=== PATIENT | male | born 1960 | race Caucasian/White ===

== ENCOUNTER 2017-12-01 18:13 | Inpatient (IN) | payer MEDICAID ==
[~2017-12-01] VITALS: Ht 170.2 cm; Wt 89.4 kg
[2017-12-01] MEDS ORDERED: IPRATROPIUM BROMIDE 0.02% 2.5 ML NEB NEB STA (18:18)
[2017-12-01] MEDS ORDERED: ALBUTEROL SULF 0.083% NEB SOLN 3 ML NEB NEB STA (18:18)
[2017-12-01 18:31] LABS: BASOPHILS # (AUTO) 0.1 (0.0-0.1); BASOPHILS % 1.1 % (0.0-1.0); EOSINOPHILS # (AUTO) 0.4 (0.0-0.4); EOSINOPHILS % 5.6 % (0.0-6.0); HEMATOCRIT 34.8 % (38.2-49.6); HEMOGLOBIN 11.4 g/dL (14.0-18.0); LYMPHOCYTES # (AUTO) 1.5 (1.0-3.2); LYMPHOCYTES % 23.2 % (18.0-39.1); MEAN CORPUSCULAR HEMOGLOBIN 28.7 pg (28-32); MEAN CORPUSCULAR HGB CONC 32.8 g/dL (31-35); MEAN CORPUSCULAR VOLUME 87.7 fL (81-99); MONOCYTES # (AUTO) 0.6 (0.2-0.8); MONOCYTES % 9.9 % (4.4-11.3); NEUTROPHILS # (AUTO) 3.8 (2.1-6.9); NEUTROPHILS % 59.9 % (38.7-80.0); PLATELET COUNT 197 x10e3/uL (140-360); RED BLOOD COUNT 3.97 x10e6/uL (4.3-5.7)
[2017-12-01 18:46] LABS: ANION GAP 15.8 mmol/L (8-16); CALCIUM 8.9 mg/dL (8.4-10.2); CREATININE, SERUM 3.18 mg/dL (0.72-1.25); POTASSIUM 3.8 mmol/L (3.5-5.1)
[2017-12-01] MEDS ORDERED: INSULIN REGULAR, HUMAN 100 UNIT/1 ML 3ML VIAL IV STA (18:54)
[2017-12-01] MEDS ORDERED: SODIUM CHLORIDE 0.9% 1000ML 1,000 ML IV STA (18:59)
[2017-12-01] MEDS ORDERED: FAMOTIDINE 20 MG/2 ML VIAL IV STA (18:59)
[2017-12-01] MEDS ORDERED: ONDANSETRON HCL INJ 2 MG/ML VIAL IV PRN ×2 (19:00→20:45)
[2017-12-01] MEDS ORDERED: LISINOPRIL10 MG PO (19:07)
[2017-12-01] MEDS ORDERED: LYRICA50 MG PO (19:07)
[2017-12-01] MEDS ORDERED: HYDROCHLOROTHIA25 MG PO (19:07)
[2017-12-01] MEDS ORDERED: NOVOLIN N100 UNIT/1 SQ (19:07)
[2017-12-01] MEDS ORDERED: DOXAZOSIN MESYLA2 MG PO (19:07)
[2017-12-01] MEDS ORDERED: HYDRALAZINE HCL25 MG PO (19:07)
[2017-12-01] MEDS ORDERED: METOPROLOL TART50 MG PO (19:07)
[2017-12-01] MEDS ORDERED: NOVALIN N SQ ×2 (19:12)
[2017-12-01] MEDS ORDERED: HYDROCODONE/APAP 5MG-325MG TAB PO ONE (19:15)
[2017-12-01] MEDS ORDERED: ONDANSETRON HCL INJ 2 MG/ML VIAL IV ONE (19:15)
[2017-12-01] MEDS ORDERED: INSULIN REGULAR, HUMAN 100 UNIT/1 ML 3ML VIAL IV ONE (19:15)
--- NOTE | 2017-12-01 20:00 | Diagnostic Imaging Report ---
EXAMINATION: CHEST 2 VIEWS INDICATION: \S\ORDER PLACED BY \S\[id number] \S\1913 \S\Y COMPARISON: None FINDINGS: PA and lateral views TUBES and LINES: None. LUNGS: Lungs are well inflated. Minimal atelectasis in the right lower lobe. There is no evidence of pneumonia or pulmonary edema. PLEURA: No pleural effusion or pneumothorax. HEART AND MEDIASTINUM: The cardiac silhouette is prominent. BONES AND SOFT TISSUES: Moderate multilevel degenerative changes of the thoracic spine. Soft tissues are unremarkable. UPPER ABDOMEN: No free air under the diaphragm. IMPRESSION: Subsegmental atelectasis in the right lower lobe. Signed by: Dr. Nat Baird M.D. on 12/01/2017 7:56 PM
[2017-12-01] MEDS ORDERED: METHYLPREDNISOLONE SOD SUCC 125 MG/2ML VIAL IV STA (20:32)
[2017-12-01 20:38] LABS: CREATINE KINASE MB 1.7 ng/mL (0-5.0)
[2017-12-01] MEDS ORDERED: SODIUM CHLORIDE 0.9% 1000ML 1,000 ML IV SCH (20:45)
[2017-12-01] MEDS ORDERED: ALBUTEROL SULF 0.083% NEB SOLN 3 ML NEB NEB PRN (20:45)
[2017-12-01] MEDS ORDERED: DEXTROSE 50% SYRINGE 50 ML IV PRN (20:45)
[2017-12-01] MEDS ORDERED: IPRATROPIUM BROMIDE 0.02% 2.5 ML NEB NEB PRN (20:45)
[2017-12-01] MEDS ORDERED: INSULIN REGULAR, HUMAN 100 UNIT/1 ML 3ML VIAL SQ SCH (21:00)
[2017-12-01] MEDS ORDERED: ASPIRIN 325 MG TAB EC PO ONE (21:00)
[2017-12-01] MEDS: AZITHROMYCIN 500MG/NS 250 ML 250 ML IV SCH (21:52)
[2017-12-01] MEDS: CEFTRIAXONE SOD 1 GM VIAL IV SCH (21:52)
[2017-12-01 22:00] VITALS: BP 159/72
[2017-12-01 22:25] VITALS: BP 159/72
[2017-12-01] MEDS: FAMOTIDINE 20 MG/2 ML VIAL IV SCH (23:22)
[2017-12-02] VITALS (9 sets, daily range): BP systolic 144–160; BP diastolic 74–87
[2017-12-02 03:23] LABS: CREATINE KINASE MB 1.7 ng/mL (0-5.0)
[2017-12-02 05:54] LABS: BASOPHILS % 0.6 % (0.0-1.0); EOSINOPHILS % 0.2 % (0.0-6.0); HEMATOCRIT 32.8 % (38.2-49.6); HEMOGLOBIN 10.8 g/dL (14.0-18.0); LYMPHOCYTES # (AUTO) 0.5 (1.0-3.2); MEAN CORPUSCULAR HEMOGLOBIN 28.6 pg (28-32); MEAN CORPUSCULAR HGB CONC 32.9 g/dL (31-35); MONOCYTES # (AUTO) 0.1 (0.2-0.8); MONOCYTES % 1.4 % (4.4-11.3); NEUTROPHILS # (AUTO) 4.3 (2.1-6.9); NEUTROPHILS % 87.6 % (38.7-80.0); PLATELET COUNT 181 x10e3/uL (140-360); RED BLOOD COUNT 3.77 x10e6/uL (4.3-5.7); RED CELL DISTRIBUTION WIDTH 14.6 % (11.7-14.4)
[2017-12-02 06:18] LABS: ANION GAP 15.5 mmol/L (8-16); CALCIUM 8.6 mg/dL (8.4-10.2); CHOL/HDL RATIO 4.6 (3.9-4.7); CREATININE, SERUM 2.88 mg/dL (0.72-1.25); POTASSIUM 4.5 mmol/L (3.5-5.1)
[2017-12-02] MEDS ORDERED: ZOLPIDEM TARTRATE 10 MG TAB PO PRN (08:00)
[2017-12-02] MEDS ORDERED: DEXTROSE 50% SYRINGE 50 ML IV PRN (08:00)
[2017-12-02] MEDS: ASPIRIN 81 MG ENTERIC COATED PO SCH (08:44)
[2017-12-02] MEDS: HYDRALAZINE HCL 25 MG TAB PO SCH ×3 (08:44→21:10)
[2017-12-02] MEDS: FAMOTIDINE 20 MG/2 ML VIAL IV SCH ×2 (08:44→21:09)
[2017-12-02] MEDS: METOPROLOL TARTRATE 50 MG TAB PO SCH ×2 (08:45→17:34)
[2017-12-02] MEDS: HUMULIN 70/30 VIAL SQ SCH ×2 (08:45→21:11)
[2017-12-02] MEDS: PREGABALIN 50 MG CAP PO SCH (08:45)
--- NOTE | 2017-12-02 08:46 | Pre Op History & Physical ---
REFERRING PHYSICIAN: Dr. Eren Hui. CHIEF COMPLAINT: Chest pain after coughing. HISTORY OF PRESENT ILLNESS: The patient is a 57-year-old man. He has a history of insulin-dependent diabetes and chronic renal insufficiency stage 3. Apparently, he was coughing and then heard a "pop" in the chest. He complains of right-sided chest pain since then. He does not have any fever or phlegm production. PAST SURGICAL HISTORY 1. Status post appendectomy. 2. He is status post foot surgery. MEDICAL HISTORY 1. History of diabetes that requires insulin. 2. History of chronic renal failure stage 3. 3. No prior cardiac history. SOCIAL HISTORY: The patient was a smoker up until very recently. He is not an active drinker. FAMILY HISTORY: Family history is noncontributory. REVIEW OF SYSTEMS: The patient has no fever or headache. He is not complaining of neck pain. He does have some chest pain that is worse on the right side and is worse with . He notes some cough but no dyspnea. He is not having any abdominal pain. He has no nausea or vomiting. He has no leg edema. PHYSICAL EXAMINATION VITALS: The patient is afebrile. The vital signs are stable. HEENT: No facial swelling or erythema. The nasal mucosa is normal. The oropharynx is normal. LYMPHATIC: No submandibular, cervical, or supraclavicular adenopathy. CARDIAC: Regular rate and rhythm with normal S1 and S2. There are no murmurs or rubs. LUNGS: Auscultation of lungs shows rhonchus breath sounds bilaterally. There is no wheezing. ABDOMEN: Soft and nontender. There is no rebound or guarding. EXTREMITIES: No leg edema or calf tenderness. There is no cyanosis or clubbing. SKIN: No rashes. NEUROLOGIC: No focal abnormalities. IMPRESSIONS 1. Chest pain of unclear etiology. 2. Possible rib fracture related to coughing. 3. Insulin-dependent diabetes. 4. Chronic renal insufficiency. PLAN 1. Patient will have a CT scan of the chest to rule out any pneumothorax. 2. Cardiac evaluation. 3. Kidney evaluation. 4. Continue insulin and antihypertensives. Job#: [id number]
[2017-12-02] MEDS ORDERED: LISINOPRIL 10 MG TAB PO SCH (09:00)
--- NOTE | 2017-12-02 09:44 | Diagnostic Imaging Report ---
PROCEDURE: CT CHEST WITHOUT CONTRAST CT scan of the chest WITHOUT intravenous contrast, using standard protocol. TECHNIQUE: The chest was scanned utilizing a multidetector helical scanner from the apex to the level of the adrenal glands. No IV contrast was administered because of referring physician request. Coronal and sagittal multiplanar reformations were obtained. COMPARISON: Chest radiograph 12/01/2017. INDICATIONS: COUGH, RIGHT SIDE CHAST PAIN FINDINGS: Lines/tubes: None. Lungs and Airways: Groundglass and bandlike opacities in the dependent lower lobes right greater than left compatible with subsegmental atelectasis. No consolidation, bronchiectasis, or fibrotic change. No cystic lucencies or bullae to suggest emphysema. Pleura: No pleural effusion or pneumothorax. Heart and mediastinum: Visualized portions of the thyroid gland are unremarkable. Mediastinal lymph nodes are increased in number though not enlarged by CT criteria. Evaluation for hilar lymphadenopathy is limited in the absence of intravenous contrast. No axillary lymphadenopathy. Atherosclerotic calcification of the thoracic aorta, great vessel origins, and coronary arteries. No ectasia or aneurysmal dilatation of the thoracic aorta. Pulmonary outflow tract is of normal caliber. No pericardial effusion. Moderate sliding hiatal hernia. Soft tissues: No focal soft tissue abnormalities. Abdomen: Visualized portions of the liver, spleen, adrenals, and pancreas are unremarkable. Bones: No osseous destructive lesions. Multilevel degenerative disc changes of the thoracic spine. Extensive degenerative osteophytosis of the right glenoid and humeral head. Status post left shoulder arthroplasty. IMPRESSION: Bibasilar subsegmental atelectasis. No pneumothorax. No CT evidence of COPD/emphysema per clinical query. Atherosclerotic vascular disease. Sliding hiatal hernia. Dictated by: David Birch M.D. on 12/02/2017 at 9:49 Electronically approved by: David Birch M.D. on 12/02/2017 at 9:49
[2017-12-02 10:53] LABS: CREATINE KINASE MB 1.9 ng/mL (0-5.0)
[2017-12-02] MEDS: INSULIN REGULAR, HUMAN 100 UNIT/1 ML 3ML VIAL SQ SCH ×3 (12:00→21:12)
--- NOTE | 2017-12-02 13:31 | Consultation ---
DATE OF CONSULTATION: December 02, 2017 CARDIOLOGY CONSULTATION ATTENDING PHYSICIAN: Dr. Stone Hassan. CLINICAL HISTORY: This is a 57-year-old white man, a patient Dr. Eren Hui, referred by Dr. Stone Hassan for evaluation of right upper quadrant pleuritic pains. This patient has a chronic left bundle-branch block. He was told that he has thickened heart muscle in the past. He has no previous history of coronary artery disease. He walks 2 miles per day without any exertion-related chest pains. He noticed that he has had right upper quadrant pain particularly with coughing. He said he heard a pop in his chest. CT scan of the chest, however, failed to show any rib fractures. The patient does have a sliding hiatal hernia. There is no evidence of pneumothorax. Cardiology consultation is requested. PAST MEDICAL HISTORY: Remarkable for appendectomy, bilateral shoulder surgery, foot surgery. He has history of hypertension. He denies any diabetes or hyperlipidemia. There is history of chronic kidney disease. His creatinine now is 2.88. PERSONAL / SOCIAL HISTORY: He smoked for 5 years. He has a chronic cough. He thinks he might have a virus. He stopped drinking in 1993. Prior to that, he was a heavy drinker. 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 Apparently his shoulder prevents him from working on a regular job. FAMILY HISTORY: Noncontributory. REVIEW OF SYSTEMS: Negative. PHYSICAL EXAMINATION VITAL SIGNS: Stable. CARDIAC: Jugular veins are not distended. S1, S2 were regular. There is no appreciable murmur. LUNGS: Clear. ABDOMEN: Right upper quadrant tenderness. There is no rebound or guarding. EXTREMITIES: No cyanosis, clubbing or edema. IMPRESSION 1. Possible cholecystitis and cholelithiasis. 2. Hypertension. 3. Unclear history of insulin-dependent diabetes. 4. Chronic kidney disease. Creatinine 2.88. 5. Chronic left bundle-branch block without any chest symptoms even with exertion. RECOMMENDATION: At this point, I do not recommend any cardiac workup. Consider ultrasound of the gallbladder. Thank you very much. Job#: [id number] cc:Jose Angel BUCIO MD
[2017-12-02] MEDS: LISINOPRIL 20 MG TAB PO SCH (17:34)
[2017-12-02] MEDS: HYDROCODONE/APAP 7.5MG-325MG 1 EA TAB PO PRN (17:35)
--- NOTE | 2017-12-02 17:55 | Diagnostic Imaging Report ---
PROCEDURE:ABDOMINAL ULTRASOUND COMPARISON:None. INDICATIONS:RUQ PAIN, CHECK GB TECHNIQUE: Warren-scale and color sonographic images were obtained of the abdomen in transverse and sagittal planes. FINDINGS: Liver: 15.1 cm in length in right midclavicular line. Normal echogenicity. No masses. Main portal vein: 1.2 cm in caliber, hepatopetal flow Gallbladder: The gallbladder is poorly visualized. Calcified stones are seen in the gallbladder. There is mild thickening of the gallbladder wall, measuring up to 7 mm, which may be due to underdistention. Common Bile Duct: 0.6 cm in caliber with a small amount of internal debris. Sonographic Manzanares's sign: Reported as positive, though evaluation is limited Right kidney: 8.4 cm in length Left kidney: 10.8 cm in length 7 mm echogenic focus in the right kidney may represent a nonobstructing stone. A 1.2 cm echogenic focus in the left kidney may also represent a nonobstructing stone. 1.6 x 1.4 x 1.4 cm cyst in the midpole of the left kidney 1.4 x 1.3 x 1.2 cm cyst, also in the midpole of the left kidney. No hydronephrosis or solid renal masses. Renal parenchymal echogenicity is increased. Spleen: 12.9 cm in length Pancreas: Not visualized due to overlying bowel gas Inferior vena cava: Patent Aorta: Poorly visualized due to overlying bowel gas Ascites: None CONCLUSION: 1. Limited examination due to patient body habitus and excessive overlying bowel gas. 2. Cholelithiasis. Gallbladder wall thickening may be due to underdistention. No pericholecystic fluid. Correlate for clinical evidence of acute cholecystitis. 3. Nonobstructing stones in both kidneys. Simple left renal cysts. 4. Increased renal parenchymal echogenicity suggests renal parenchymal dysfunction. Dictated by: Curtis oMore M.D. on 12/02/2017 at 18:00 Electronically approved by: Curtis Moore M.D. on 12/02/2017 at 18:00
--- NOTE | 2017-12-02 18:56 | Consultation ---
DATE OF CONSULTATION: December 02, 2017 NEPHROLOGY CONSULTATION REASON FOR CONSULTATION: Acute kidney injury on chronic kidney disease. HISTORY OF PRESENT ILLNESS: A 57-year-old male with past medical history of uncontrolled type 2 diabetes for 10 years, known history of chronic kidney disease stage 3-4 ongoing for several years now. He presented to the ED after having a popping sensation in his right chest wall after having a significant cough at home. The patient denies any fever, cough, congestion or any other phlegm at home. The patient was evaluated and interviewed thoroughly. The patient denies any history of kidney stones or any family members on dialysis. He denies any family history of some sort of genetic kidney disorder. He reports taking Advil once a week, occasionally twice a week. He also denies any recent medication usage. Denies any herbal supplements, [id number] medications as well. The patient, of note, has been known to have on underlying chronic kidney disease, which he was told by his primary care physician. The patient is seen and evaluated at the bedside on the medical floor. Patient currently doing well with no other issues at this time. REVIEW OF SYSTEMS: Pertinent positives: Cough, congestion, right-sided chest pain. Pertinent negatives: Denies any palpitations, nausea, vomiting, diarrhea, dysuria, hematuria, frequency, urgency, lightheadedness, dizziness, abdominal pain, headaches, shortness of breath, fever or any other complaints. Rest of the 14-point review of systems have been reviewed with the patient and are negative. ALLERGIES: IODINE. HOME MEDICATIONS: Doxazosin 2 mg at bedtime, hydralazine 25 mg p.o. t.i.d., lisinopril 20 mg b.i.d., metoprolol 100 mg p.o. b.i.d., NPH 35 units subcu twice daily, Lyrica 50 mg daily, Novolin N 30 units subcu at bedtime, and Novolin 35 units in the morning, hydrochlorothiazide 25 mg during the day. PAST MEDICAL HISTORY: Hypertension, BPH, chronic kidney disease stage 3, uncontrolled type 2 diabetes. FAMILY HISTORY: Hypertension and diarrhea. PAST SURGICAL HISTORY: Appendectomy, status post foot surgery in the past. SOCIAL HISTORY: He smokes 1 pack per day for many years. No drugs. No alcohol. Good social support. PHYSICAL EXAMINATION VITAL SIGNS: Temperature 98.6, pulse 60, respiratory rate 19, blood pressure 160/74, pulse ox 94% on room air. GENERAL: Not in acute distress. Alert and oriented times 3 and cooperative on exam. HEENT: Head is normocephalic and atraumatic: Eyes: Pupils are equal and reactive to light bilaterally. Extraocular movements intact bilaterally. NECK: Supple. Good range of motion. THROAT: No evidence of any erythema or exudates in the posterior pharynx. Has poor dentition. PULMONARY: Clear to auscultation bilaterally. No wheezing and no rales or rhonchi appreciated. CARDIOVASCULAR: Positive S1 and S2. No murmurs, rubs or gallops appreciated. ABDOMEN: Soft, nondistended and nontender to palpation. Bowel sounds present. MUSCULOSKELETAL: Strength is 5/5 throughout. No evidence of any musculoskeletal deficit on examination. No weakness appreciated. NEUROLOGICAL: Cranial nerves II through XII are grossly intact. No evidence of any neurological deficit on exam. SKIN: Intact. Warm to touch. Good cap refill. PSYCHIATRIC: Normal affect and mood. EXTREMITIES: No edema and good range of motion throughout. LABORATORY DATA: White count is 4.9, hematocrit 33, hemoglobin 10.8, platelets 181,000. Coagulation: D-dimer 0.48. Chemistry: Sodium 135, potassium 4.5, chloride 101, bicarb 23, anion gap of 15, BUN 41, creatinine 2.8. In looking at his trend, creatinine of note in 2008 creatinine was 1.7, then downtrended to 1.3. In 2014 creatinine was 2, now 3.1, now 2.8. Glucose is 257. Troponins are 0.065. LDH is 71. Urinalysis: Toxicology none. Microbiology: None. IMAGING: Chest x-ray documented atelectasis in the right lower lobe. CT of chest bibasilar subsegmental atelectasis. No pneumothorax. Atherosclerotic vascular disease. Sliding hiatal hernia. IMPRESSION 1. Right-sided chest pain. 2. Acute kidney injury on chronic kidney disease, stage 3-4. 3. Uncontrolled type 2 diabetes. 4. Hypertension. PLAN: At this time, it seems that the patient's underlying chronic kidney disease is due to diabetic nephropathy due to having diabetic neuropathy as well as diabetic retinopathy, according to the patient. At this time, he also has elevated blood pressure which also could be contributing to his renal disease. Of note, he has had this problem for several years now, and he has been aware by his primary care physician. At this time, we will get urine, electrolytes, urine sodium, urine protein to creatinine, urine microalbumin to creatinine, urine eosinophils. I would like to quantify his proteinuria. Try to maximize his LUIS MANUEL inhibitor as tolerated due to the fact that this is likely diabetic nephropathy. He will get a renal ultrasound as well to assess the kidney size and chronicity. Otherwise, will continue to follow with you and get a.m. labs. Thank you so much for this consultation. Will continue to follow with you. Job#: [id number] KAUR
[2017-12-02 19:31] LABS: BILIRUBIN,URINE NEGATIVE (NEGATIVE); CLARITY,URINE SL CLOUDY (CLEAR); COLOR,URINE YELLOW (YELLOW); KETONES,URINE NEGATIVE (NEGATIVE); LEUKOCYTE ESTERASE ,URINE NEGATIVE (NEGATIVE); NITRITE,URINE NEGATIVE (NEGATIVE); PROTEIN,URINE DIPSTICK 2+ (NEGATIVE); URINE UROBILINOGEN 0.2 mg/dL (0.2 - 1)
[2017-12-02 19:33] LABS: EPITHELIAL CELLS,URINE FEW /LPF
[2017-12-02 19:45] LABS: CREATININE,URINE RANDOM 91.83 mg/dL (63-166); SODIUM,URINE 58 mmol/L; TOTAL PROTEIN, URINE 120.1 mg/dL (1-14)
[2017-12-02 19:47] LABS: CREATINE KINASE MB 2.3 ng/mL (0-5.0)
[2017-12-02] MEDS: HYDROMORPHONE 1MG/1ML INJ IV PRN (19:49)
[2017-12-02 20:08] LABS: EOSINOPHIL SMEAR,URINE NONE SEEN (NONE SEEN)
[2017-12-02] MEDS ORDERED: SODIUM CHLORIDE 0.9% 250ML 250 ML ONE (20:54)
[2017-12-02] MEDS ORDERED: NOVALIN N SQ SCH (21:00)
[2017-12-02] MEDS: CEFTRIAXONE SOD 1 GM VIAL IV SCH (21:08)
[2017-12-02] MEDS: AZITHROMYCIN 500MG/NS 250 ML 250 ML IV SCH (21:08)
[2017-12-02] MEDS: DOXAZOSIN MESYLATE 2 MG TAB PO SCH (21:10)
[2017-12-03 05:43] LABS: BASOPHILS % 0.4 % (0.0-1.0); EOSINOPHILS # (AUTO) 0.1 (0.0-0.4); EOSINOPHILS % 0.6 % (0.0-6.0); HEMATOCRIT 34.3 % (38.2-49.6); HEMOGLOBIN 10.8 g/dL (14.0-18.0); LYMPHOCYTES # (AUTO) 1.6 (1.0-3.2); LYMPHOCYTES % 16.4 % (18.0-39.1); MEAN CORPUSCULAR HEMOGLOBIN 28.6 pg (28-32); MEAN CORPUSCULAR HGB CONC 31.5 g/dL (31-35); MEAN CORPUSCULAR VOLUME 90.7 fL (81-99); MONOCYTES # (AUTO) 0.5 (0.2-0.8); MONOCYTES % 5.5 % (4.4-11.3); NEUTROPHILS # (AUTO) 7.2 (2.1-6.9); NEUTROPHILS % 76.5 % (38.7-80.0); PLATELET COUNT 191 x10e3/uL (140-360); RED BLOOD COUNT 3.78 x10e6/uL (4.3-5.7); RED CELL DISTRIBUTION WIDTH 14.7 % (11.7-14.4)
[2017-12-03 06:09] LABS: ANION GAP 17.7 mmol/L (8-16); CALCIUM 9.5 mg/dL (8.4-10.2); CREATININE, SERUM 3.34 mg/dL (0.72-1.25); POTASSIUM 4.7 mmol/L (3.5-5.1)
[2017-12-03 07:10] VITALS: BP 156/83
[2017-12-03] MEDS: INSULIN REGULAR, HUMAN 100 UNIT/1 ML 3ML VIAL SQ SCH ×4 (07:30→21:04)
[2017-12-03] MEDS: NPH, HUMAN INSULIN ISOPHANE 100 UNIT/1 ML 3ML VIAL SQ SCH (07:30)
[2017-12-03] MEDS ORDERED: NOVALIN N SQ SCH (07:30)
[2017-12-03 08:29] VITALS: BP 156/83
[2017-12-03] MEDS: HUMULIN 70/30 VIAL SQ SCH ×2 (09:00→21:00)
[2017-12-03] MEDS: ASPIRIN 81 MG ENTERIC COATED PO SCH (09:06)
[2017-12-03] MEDS: FAMOTIDINE 20 MG/2 ML VIAL IV SCH ×2 (09:06→20:55)
[2017-12-03] MEDS: HYDRALAZINE HCL 25 MG TAB PO SCH ×3 (09:06→20:57)
[2017-12-03] MEDS: PREGABALIN 50 MG CAP PO SCH (09:07)
[2017-12-03] MEDS: METOPROLOL TARTRATE 50 MG TAB PO SCH ×2 (09:07→16:06)
[2017-12-03] MEDS: LISINOPRIL 20 MG TAB PO SCH ×2 (09:07→16:06)
[2017-12-03] MEDS: HYDROCODONE/APAP 7.5MG-325MG 1 EA TAB PO PRN (10:20)
[2017-12-03 11:53] VITALS: BP 143/96
--- NOTE | 2017-12-03 13:34 | Consultation ---
DATE OF CONSULTATION: December 03, [address] Dr. Stone Hassan. 2. Dr. Eren Hui. HISTORY OF PRESENT ILLNESS: Patient is a 57-year-old male who was admitted to the hospital with complaints of chest pain and right upper quadrant abdominal pain. Patient says the pain is worse when he coughs and radiates to his back. Says it has gotten progressively worse since he was admitted. Evaluation of the ultrasound revealed gallstones with a thickened gallbladder wall. PAST MEDICAL HISTORY: Significant for previous appendectomy, previous foot surgery, history of diabetes, chronic kidney disease. MEDICATIONS: At home are doxazosin, hydralazine, hydrochlorothiazide, lisinopril, metoprolol, insulin, pregabalin. ALLERGIES: ALLERGY TO IODINE. FAMILY HISTORY: Noncontributory. SOCIAL HISTORY: The patient smokes cigarettes about 1-1/2 pack per day. Does not drink alcohol. REVIEW OF SYSTEMS: There is no fever, no weight loss. PHYSICAL EXAMINATION VITALS: Normal. He is afebrile. GENERAL: The patient is awake and alert, in no distress. HEENT: Reveals no scleral icterus. NECK: Has no masses. LUNGS: Equal breath sounds, are clear bilaterally. CARDIAC: Regular rate and rhythm with no murmur. ABDOMEN: Tender in right upper quadrant. There is no mass. There is no distension. There were no signs of peritonitis. EXTREMITIES: Have slight edema. NEUROLOGIC: Grossly intact. LABORATORY DATA: White blood cell count is normal. Hemoglobin and hematocrit are normal. Chemistries reveal elevated BUN and creatinine. Otherwise electrolytes were normal. ASSESSMENT: A 57-year-old male with right upper quadrant abdominal pain symptoms, suggestive of gallbladder disease with gallstones seen on ultrasound. Patient would likely benefit from cholecystectomy. Plan: To schedule for tomorrow. Procedure was explained to the patient including risks, benefits, and alternatives. He understands the procedure. He has had the opportunity to ask questions. Thank you for asking me see to see Mr. Guaman. Job#: [id number] OMAYRA
[2017-12-03 16:10] VITALS: BP 160/90
[2017-12-03 20:00] VITALS: BP 151/84
[2017-12-03] MEDS: DOXAZOSIN MESYLATE 2 MG TAB PO SCH (20:57)
[2017-12-03] MEDS: CEFTRIAXONE SOD 1 GM VIAL IV SCH (20:58)
[2017-12-03] MEDS: AZITHROMYCIN 500MG/NS 250 ML 250 ML IV SCH (21:06)
[2017-12-03 21:07] VITALS: BP 151/84
[2017-12-04] VITALS (8 sets, daily range): BP systolic 121–171; BP diastolic 70–92
[2017-12-04] MEDS: NPH, HUMAN INSULIN ISOPHANE 100 UNIT/1 ML 3ML VIAL SQ SCH (07:30)
[2017-12-04] MEDS: INSULIN REGULAR, HUMAN 100 UNIT/1 ML 3ML VIAL SQ SCH ×4 (07:30→21:23)
[2017-12-04] MEDS: PREGABALIN 50 MG CAP PO SCH (07:43)
[2017-12-04] MEDS: LISINOPRIL 20 MG TAB PO SCH ×2 (07:43→17:13)
[2017-12-04] MEDS: HYDRALAZINE HCL 25 MG TAB PO SCH ×3 (07:43→21:14)
[2017-12-04] MEDS: METOPROLOL TARTRATE 50 MG TAB PO SCH ×2 (07:43→17:13)
[2017-12-04] MEDS: ASPIRIN 81 MG ENTERIC COATED PO SCH (07:43)
[2017-12-04] MEDS: HUMULIN 70/30 VIAL SQ SCH ×2 (07:43→21:22)
[2017-12-04] MEDS: FAMOTIDINE 20 MG/2 ML VIAL IV SCH ×2 (08:55→21:21)
[2017-12-04] MEDS ORDERED: BUPIVACAINE 0.5%/EPI 30 ML SDV INJ ONE (13:39)
[2017-12-04] MEDS: SODIUM CHLORIDE 0.9% 1000ML 1,000 ML IV SCH (15:16)
[2017-12-04] MEDS ORDERED: HYDROCODONE/APAP 7.5MG-325MG 1 EA TAB PO PRN (15:30)
[2017-12-04] MEDS ORDERED: ONDANSETRON HCL INJ 2 MG/ML VIAL IV PRN (15:30)
[2017-12-04] MEDS ORDERED: ALBUTEROL SULF 0.083% NEB SOLN 3 ML NEB ONE (15:38)
--- NOTE | 2017-12-04 15:58 | Operative Report ---
DATE OF PROCEDURE: December 04, 2017 PREOPERATIVE DIAGNOSIS: [id number]-[id number] cholecystitis, cholelithiasis. POSTOPERATIVE DIAGNOSIS: [id number] cholecystitis, cholelithiasis. OPERATIONS PERFORMED: 1. Diagnostic laparoscopy. 2. Laparoscopic cholecystectomy. GRASS FARMER: None. ANESTHESIA: General. INDICATIONS AND FINDINGS: The patient is a 57-year-old male admitted to the hospital with cough and right upper quadrant abdominal pain. At surgery the patient was found to have a gallbladder that was contracted, containing multiple stones. There were adhesions involving omentum and duodenum over the neck and fundus of the gallbladder. Cystic duct was about 3 mm in diameter. Common bile duct was about 6 mm in diameter. TECHNIQUE: After adequate general endotracheal anesthesia with the patient in the supine position, the abdomen was prepped and draped in a sterile fashion with ChloraPrep solution. Skin in the umbilicus was infiltrated with 0.5% Marcaine. Incision was made in the umbilicus. Abdominal wall was elevated, and a Veress needle was introduced. Pneumoperitoneum was then created. A 10-mm trocar and cannula were then passed through the umbilical wound. Laparoscopic camera was introduced. Initial laparoscopy revealed the liver, stomach and lower abdomen appeared normal. A 10-mm trocar and cannula were placed in the epigastrium, and two 5-mm trocars and cannulas were placed in the right upper quadrant. These were placed under direct vision. There were adhesions over the edge of the liver and over the gallbladder. These were lysed in close to the gallbladder. They involved the omentum and the duodenum. The gallbladder was noted to be fibrotic and contracted. The fundus was grasped, retracted superiorly. There were additional adhesions over the neck of the gallbladder. The gallbladder neck was dissected free. The cystic duct was dissected free as was the cystic artery. The neck was completely dissected free. The cystic artery was divided between hemoclips close to the gallbladder. The cystic duct was very long and was dissected free, and the common bile duct was well seen. The cystic duct was divided between hemoclips with 3 clips being left on the common bile duct side. The gallbladder was dissected free from the liver using scissors and electrocautery. Once it was entirely free, it was placed into an Endopouch and brought out through the epigastric cannula. It was small and contracted and contained multiple stones. The gallbladder bed was inspected for hemostasis, which was seen to be adequate. It was irrigated with saline, all fluid aspirated, inspected for hemostasis, which was seen to be adequate. Instruments and cannulas were then removed. Pneumoperitoneum was evacuated. The wounds were then closed. Fascia in the umbilical and epigastrium wound closed with 0 Vicryl, skin to all wounds closed with kendra. Sterile dressing was applied. The patient tolerated the procedure well. Estimated blood loss was 10 mL. There were no complications. All counts were correct. The patient was taken to the recovery room in satisfactory condition. Job#: [id number] EV
[2017-12-04] MEDS ORDERED: DEXAMETHASONE SOD PHOS INJ 4 MG/ML VIAL ONE (17:31)
[2017-12-04] MEDS ORDERED: SEVOFLURANE INHAL SOLN 250 ML PEN BTL ONE (17:31)
[2017-12-04] MEDS ORDERED: ROCURONIUM BROMIDE 10 MG/ML 5ML VIAL ONE (17:31)
[2017-12-04] MEDS ORDERED: PROPOFOL IV EMULSION 10 MG/ML 20 ML VIAL ONE (17:31)
[2017-12-04] MEDS ORDERED: LIDOCAINE HCL 2% LOCAL INJ 5 ML SDV VIAL INJ ONE (17:31)
[2017-12-04] MEDS ORDERED: FENTANYL CITRATE/PF 100MCG/2 ML INJ ONE (18:25)
[2017-12-04] MEDS ORDERED: MIDAZOLAM HCL 2 MG/2 ML VIAL ONE (18:25)
[2017-12-04] MEDS: DOXAZOSIN MESYLATE 2 MG TAB PO SCH (21:14)
[2017-12-04] MEDS: CEFTRIAXONE SOD 1 GM VIAL IV SCH (21:19)
[2017-12-04] MEDS: AZITHROMYCIN 500MG/NS 250 ML 250 ML IV SCH (21:45)
[2017-12-05] VITALS: BP 119/83
[2017-12-05] MEDS: SODIUM CHLORIDE 0.9% 1000ML 1,000 ML IV SCH ×2 (01:16→11:16)
[2017-12-05 04:00] VITALS: BP 157/80
[2017-12-05] MEDS: HYDROMORPHONE 1MG/1ML INJ IV PRN (05:05)
[2017-12-05] MEDS: INSULIN REGULAR, HUMAN 100 UNIT/1 ML 3ML VIAL SQ SCH ×2 (07:30→11:30)
[2017-12-05] MEDS: NPH, HUMAN INSULIN ISOPHANE 100 UNIT/1 ML 3ML VIAL SQ SCH (07:30)
[2017-12-05 08:00] VITALS: BP 148/79
[2017-12-05] MEDS: LISINOPRIL 20 MG TAB PO SCH (09:00)
[2017-12-05] MEDS: HYDRALAZINE HCL 25 MG TAB PO SCH (09:00)
[2017-12-05] MEDS: METOPROLOL TARTRATE 50 MG TAB PO SCH (09:00)
[2017-12-05] MEDS: ASPIRIN 81 MG ENTERIC COATED PO SCH (09:00)
[2017-12-05] MEDS: HUMULIN 70/30 VIAL SQ SCH (09:00)
[2017-12-05] MEDS: FAMOTIDINE 20 MG/2 ML VIAL IV SCH (09:00)
[2017-12-05] MEDS: PREGABALIN 50 MG CAP PO SCH (09:00)
[2017-12-05 12:00] VITALS: BP 154/91
== END 2017-12-05 13:48 | disposition home or self-care (01) | DRG 418 ==
LOC: ER 18:13 → ERHOLD 20:40 → IMCU 22:19 → OBSVTOIN 12-02 12:44 → MED/SURG2 12-02 13:16
PROVIDERS: ADMIT Internal Medicine Critical Care Medicine; ATTEND Internal Medicine Critical Care Medicine
PROC: 0FT44ZZ Resection of Gallbladder, Percutaneous Endoscopic Approach (ICD-10-PCS; principal; 2017-12-04 14:32)
DX: K80.12 Calculus of gallbladder with acute and chronic cholecystitis without obstruction (principal); N17.9 Acute kidney failure, unspecified; N18.4 Chronic kidney disease, stage 4 (severe); R07.89 Other chest pain; I44.7 Left bundle-branch block, unspecified; J20.9 Acute bronchitis, unspecified; E11.22 Type 2 diabetes mellitus with diabetic chronic kidney disease; Z79.4 Long term (current) use of insulin; Z72.0 Tobacco use; Z83.3 Family history of diabetes mellitus; Z82.49 Family history of ischemic heart disease and other diseases of the circulatory system; E11.21 Type 2 diabetes mellitus with diabetic nephropathy; E11.40 Type 2 diabetes mellitus with diabetic neuropathy, unspecified; E11.319 Type 2 diabetes mellitus with unspecified diabetic retinopathy without macular edema; K21.9 Gastro-esophageal reflux disease without esophagitis; Z91.048 Other nonmedicinal substance allergy status; E11.65 Type 2 diabetes mellitus with hyperglycemia
CPT/HCPCS: 36415; 71046; 71250; 76700; 80048; 80061; 81001; 81015; 82044; 82550; 82553; 82570; 82948; 84156; 84300; 84484; 84550; 85025; 85379; 88304; 93005; 99284; G0378; J0456; J0696; J1100; J1170; J2001; J2250; J2405; J2930; J7030; J7050

== ENCOUNTER 2017-12-16 17:56 | Emergency (ER) | payer MEDICAID ==
[~2017-12-16] VITALS: Ht 170.2 cm; Wt 89.4 kg
[~2017-12-16 17:56] MED LIST: DOXAZOSIN MESYLA2 MG PO; HYDRALAZINE HCL25 MG PO; HYDROCHLOROTHIA25 MG PO; LISINOPRIL10 MG PO; LYRICA50 MG PO; METOPROLOL TART50 MG PO; NOVALIN N SQ; NOVOLIN N100 UNIT/1 SQ
[2017-12-16] MEDS ORDERED: TRAMADOL HCL 50 MG TAB PO ONE (18:30)
[2017-12-16 18:54] LABS: BASOPHILS # (AUTO) 0.1 (0.0-0.1); EOSINOPHILS # (AUTO) 0.2 (0.0-0.4); EOSINOPHILS % 2.8 % (0.0-6.0); HEMATOCRIT 32.1 % (38.2-49.6); HEMOGLOBIN 10.2 g/dL (14.0-18.0); LYMPHOCYTES # (AUTO) 1.5 (1.0-3.2); LYMPHOCYTES % 19.1 % (18.0-39.1); MEAN CORPUSCULAR HEMOGLOBIN 27.6 pg (28-32); MEAN CORPUSCULAR HGB CONC 31.8 g/dL (31-35); MONOCYTES # (AUTO) 0.6 (0.2-0.8); MONOCYTES % 7.7 % (4.4-11.3); NEUTROPHILS # (AUTO) 5.5 (2.1-6.9); NEUTROPHILS % 69.1 % (38.7-80.0); PLATELET COUNT 228 x10e3/uL (140-360); RED BLOOD COUNT 3.69 x10e6/uL (4.3-5.7); RED CELL DISTRIBUTION WIDTH 14.8 % (11.7-14.4)
--- NOTE | 2017-12-16 18:57 | Diagnostic Imaging Report ---
PROCEDURE: Frontal and lateral views of the chest. COMPARISON: None. INDICATIONS: ruq pain, s/p cholecystectomy FINDINGS: Lines/tubes: None. Lungs: The lungs are well inflated and clear. There is no evidence of pneumonia or pulmonary edema. Pleura: There is no pleural effusion or pneumothorax. Heart and mediastinum: The heart and the mediastinum are normal. Bones: No acute bony abnormality. Degenerative changes in the thoracic spine. IMPRESSION: 1. No acute cardiopulmonary abnormalities. Miles Miller M.D. Dictated by: Miles Miller M.D. on 12/16/2017 at 19:03 Electronically approved by: Miles Miller M.D. on 12/16/2017 at 19:03
[2017-12-16 19:12] LABS: ALBUMIN 3.2 g/dL (3.5-5.0); ALBUMIN/GLOBULIN RATIO 0.8 (0.8-2.0); CREATININE, SERUM 2.75 mg/dL (0.72-1.25)
[2017-12-16 20:46] VITALS: BP 158/77
== END 2017-12-16 20:53 | disposition home or self-care (01) ==
LOC: ER 17:56
DX: R10.11 Right upper quadrant pain (principal); E11.65 Type 2 diabetes mellitus with hyperglycemia; I10 Essential (primary) hypertension
CPT/HCPCS: 36415; 71046; 80053; 85025; 99283

== ENCOUNTER 2019-02-05 12:33 | Emergency (ER) | payer SELFPAY ==
[~2019-02-05] VITALS: Ht 170.2 cm; Wt 89.4 kg
[2019-02-05] MEDS ORDERED: BACITRACIN ZINC 0.9GM TP ONE (12:51)
[2019-02-05] MEDS ORDERED: CEPHALEXIN 500 MG CAP PO ONE (13:00)
[2019-02-05] MEDS ORDERED: DOXYCYCLINE HYCLATE TABLET 100 MG TAB PO ONE (13:00)
== END 2019-02-05 13:08 | disposition home or self-care (01) ==
LOC: ER 12:33
DX: L03.115 Cellulitis of right lower limb (principal); I10 Essential (primary) hypertension; N28.9 Disorder of kidney and ureter, unspecified
CPT/HCPCS: 99283